=== PATIENT | female | born 1950 | race Caucasian/White ===

== ENCOUNTER 2018-03-08 05:24 | Day surgery (SDC) | payer MEDICARE, OTHER ==
[~2018-03-08] VITALS: Ht 170.2 cm; Wt 99.0 kg
[2018-03-08 05:47] VITALS: BP 152/87; PULSE 73; TEMP 97.6
[2018-03-08] MEDS ORDERED: NEURONTIN300 MG/CAP PO (06:25)
[2018-03-08] MEDS ORDERED: ULTRAM 50MG TAB50 MG PO (06:26)
[2018-03-08] MEDS ORDERED: FLOVENT 44MCG I13 GM IH (06:27)
[2018-03-08] MEDS ORDERED: MOBIC15 MG PO ×2 (06:28→08:51)
[2018-03-08] MEDS ORDERED: AMITRIPTYLINE H10 M1 PO (06:29)
[2018-03-08] MEDS ORDERED: PRILOSEC10 MG PO (06:30)
[2018-03-08] MEDS ORDERED: SINGULAIR 110 MG/TAB PO (06:30)
[2018-03-08 08:06] VITALS: BP 128/70; PULSE 67
[2018-03-08 08:21] VITALS: BP 139/66; PULSE 65
[2018-03-08 08:36] VITALS: BP 154/64; PULSE 59
[2018-03-08] MEDS ORDERED: NORCO 325 MG-51 TAB PO (08:50)
[2018-03-08 08:51] VITALS: BP 151/57; PULSE 62
[2018-03-08] MEDS ORDERED: ASPIRIN 32325 MG/TAB PO (08:51)
[2018-03-08] MEDS ORDERED: COLACE 100100 MG/CAP PO (08:52)
[2018-03-08] MEDS ORDERED: ZOFRAN 4MG T4 MG/TAB PO (08:52)
[2018-03-08 09:06] VITALS: BP 153/64; PULSE 61
== END 2018-03-08 09:20 | disposition home or self-care (01) ==
LOC: SDCO 05:24
DX: S92.352K Displaced fracture of fifth metatarsal bone, left foot, subsequent encounter for fracture with nonunion (principal); M19.90 Unspecified osteoarthritis, unspecified site; J45.909 Unspecified asthma, uncomplicated; M79.7 Fibromyalgia; M85.80 Other specified disorders of bone density and structure, unspecified site; G89.29 Other chronic pain; Z90.710 Acquired absence of both cervix and uterus; Z79.82 Long term (current) use of aspirin; Z96.652 Presence of left artificial knee joint; Z83.3 Family history of diabetes mellitus; Z82.49 Family history of ischemic heart disease and other diseases of the circulatory system; Z80.51 Family history of malignant neoplasm of kidney
CPT/HCPCS: J0690; J2704; J2795; J7120

== ENCOUNTER → 2020-10-22 | Outpatient (CLI) | payer MEDICARE, OTHER ==
[~2020-10-22] VITALS: Ht 170.2 cm; Wt 101.0 kg
[~2020-10-22] MED LIST: AMITRIPTYLINE H10 M1 PO; ASPIRIN 32325 MG/TAB PO; BREZTRI AEROS10.7 GM IH; CALCIUM CARBON650 M2 PO; COLACE 100100 MG/CAP PO; FLONASEALLERGY NS; FLOVENT 44MCG I13 GM IH; LEXAPRO 10MG10 MG PO; MOBIC15 MG PO; NEURONTIN300 MG/CAP PO; NORCO 325 MG-51 TAB PO; PRILOSEC 20MG20 MG PO; PRILOSEC10 MG PO; SINGULAIR 110 MG/TAB PO; SYNTHROID 0.0.025 MG PO; ULTRAM 50MG TAB50 MG PO; ZOFRAN 4MG T4 MG/TAB PO; ZYRTEC 10MG10 MG PO
[2020-10-22 06:00] VITALS: BP 153/88; PULSE 78
[2020-10-22 07:00] VITALS: BP 179/84; PULSE 81
[2020-10-22 07:01] VITALS: BP 158/79; PULSE 80
[2020-10-22 07:02] VITALS: BP 166/78; PULSE 77
[2020-10-22 07:03] VITALS: BP 171/78; PULSE 73
[2020-10-22 07:04] VITALS: BP 170/78; PULSE 70
== END ==
LOC: COL.CARD 05:41
DX: R60.0 Localized edema (principal)
CPT/HCPCS: J2785

== ENCOUNTER → 2021-06-19 | Outpatient (CLI) | payer MEDICARE, OTHER | LOC: MC.RAD 11:16 | DX: Z12.31 Encounter for screening mammogram for malignant neoplasm of breast (principal) ==